=== PATIENT | male | born 1965 | race Caucasian/White ===

== ENCOUNTER 2019-11-11 10:55 | Emergency (ER) | payer OTHER ==
[~2019-11-11] VITALS: Ht 177.8 cm; Wt 90.7 kg
--- OUTSIDE RECORDS SUMMARY | 2019-11-11 10:58 | XMS ---
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 Guidelines Source: [employer] [facility] [place] Guidelines Date: 10/19/2019 Care Coordination: Member is currently enrolled in Mental Health Services through [employer]. If services are needed through [employer] please call: Quique [phone] Mahendra/Luis Alberto Stubbs\\[facility]; [phone] Crisis [phone] E.D. VISIT COUNT (12 MO.) 1 [facility] TOTAL 1 NOTE: Visits indicate total known visits. ED/UCC VISIT TRACKING (12 MO.) 11/11/2019 10:55 [facility] [place] TYPE: Emergency COMPLAINT: - MEDICAL CLEARANCE INPATIENT VISIT TRACKING (12 MO.) No inpatient visits to display in this time frame [email or web address]
[2019-11-11] MEDS ORDERED: LAMICTAL200 MG PO (11:51)
[2019-11-11] MEDS ORDERED: VALIUM10 MG PO (11:52)
[2019-11-11] MEDS ORDERED: MULTI VITAMIN1 EACH PO (11:53)
[2019-11-11] MEDS ORDERED: LITHIUM CARBON450 MG PO (11:54)
== END 2019-11-11 17:16 | disposition short-term general hospital (02) ==
LOC: ED 10:55
DX: F32.9 Major depressive disorder, single episode, unspecified (principal); Z88.0 Allergy status to penicillin; Z79.899 Other long term (current) drug therapy
CPT/HCPCS: 80053; 80176; 80178; 81001; 84443; 85025; 99285; G0480

== ENCOUNTER 2020-05-31 14:15 | Emergency (ER) | payer OTHER ==
[~2020-05-31] VITALS: Ht 177.8 cm; Wt 81.6 kg
[~2020-05-31 14:15] MED LIST: CEROVITE ADVAN1 EACH PO; IMITREX20 MG NAS; LAMICTAL200 MG PO; LITHIUM CARBON450 MG PO; MULTI VITAMIN1 EACH PO; SUMATRIPTAN SU100 MG PO; VALIUM10 MG PO; VENTOLIN HFA18 GM INH; WELLBUTRIN SR150 MG PO
--- OUTSIDE RECORDS SUMMARY | 2020-05-31 14:18 | XMS ---
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 - Has Care Guidelines - PDMP - [facility] - 2 Visits in 30 Days CARE PROVIDERS Mike [facility] Current PHONE: [phone] [facility] 11/12/2019-Current PHONE: [phone] Guidelines Source: [employer] Guidelines Date: 10/19/2019 Care Coordination: Member is currently enrolled in Mental Health Services through [employer]. If services are needed through [employer] please call: Quique [phone] Mahendra/Luis Alberto Chicas\[facility]; [phone] Crisis [phone] E.DNicole VISIT COUNT (12 MO.) [address] [facility] TOTAL 3 NOTE: Visits indicate total known visits. ED/UCC VISIT TRACKING (12 MO.) 05/31/2020 14:15 [facility] [place] TYPE: Emergency COMPLAINT: - MEDICAL CLEARANCE 05/03/2020 17:14 [facility] [place] TYPE: Emergency COMPLAINT: - MEDICAL CLEARANCE DIAGNOSES: - Other psychoactive substance abuse, uncomplicated - Sleep apnea, unspecified - Other microscopic hematuria - Laceration without foreign body of right forearm, initial encounter - Major depressive disorder, single episode, unspecified - Other emt intermediate (current) drug therapy - Post-traumatic stress disorder, unspecified - Contact with and (suspected) exposure to other viral communicable diseases - Allergy status to penicillin - Nicotine dependence, unspecified, uncomplicated - Unspecified cirrhosis of liver - Intentional self-harm by unspecified sharp object, initial encounter 11/11/2019 10:[address] [facility] [place] TYPE: Emergency COMPLAINT: - MEDICAL CLEARANCE DIAGNOSES: - Suicidal ideations - Major depressive disorder, single episode, unspecified - Other emt intermediate (current) drug therapy - Allergy status to penicillin INPATIENT VISIT TRACKING (12 MO.) No inpatient visits to display in this time frame [email or web address]
== END 2020-05-31 16:55 | disposition home or self-care (01) ==
LOC: ED 14:15
DX: Z04.6 Encounter for general psychiatric examination, requested by authority (principal); Z20.828 Contact with and (suspected) exposure to other viral communicable diseases; G47.30 Sleep apnea, unspecified; Z87.891 Personal history of nicotine dependence; Z88.0 Allergy status to penicillin; Z79.899 Other long term (current) drug therapy
CPT/HCPCS: 80053; 80176; 80178; 81001; 84443; 85025; 99283; C9803; G0480; U0003

== ENCOUNTER 2021-09-13 14:23 | Emergency (ER) | payer SELFPAY ==
[~2021-09-13] VITALS: Ht 177.8 cm; Wt 81.7 kg
[2021-09-13] MEDS ORDERED: ONDANSETRON ODT4 MG PO (16:00)
[2021-09-13] MEDS ORDERED: CLEOCIN HCL300 MG PO (16:00)
[2021-09-13] MEDS ORDERED: HYDROCODON-ACE1 EA10 PO (16:00)
== END 2021-09-13 16:13 | disposition home or self-care (01) ==
LOC: ED 14:23
DX: K04.7 Periapical abscess without sinus (principal); Z88.0 Allergy status to penicillin; Z79.899 Other long term (current) drug therapy; G47.30 Sleep apnea, unspecified; Z79.891 Long term (current) use of opiate analgesic
CPT/HCPCS: 99282; A9270

== ENCOUNTER 2022-03-24 16:36 | Emergency (ER) | payer OTHER ==
[~2022-03-24] VITALS: Ht 177.8 cm; Wt 96.9 kg
[~2022-03-24 16:36] MED LIST changes: +CLEOCIN HCL300 MG PO; +HYDROCODON-ACE1 EA10 PO; +ONDANSETRON ODT4 MG PO
[2022-03-24] MEDS ORDERED: PENICILLIN V P500 MG PO (19:05)
== END 2022-03-24 19:47 | disposition home or self-care (01) ==
LOC: ED 16:36
DX: K08.89 Other specified disorders of teeth and supporting structures (principal); Z87.891 Personal history of nicotine dependence
CPT/HCPCS: 99282

== ENCOUNTER 2023-05-01 14:41 | Emergency (ER) | payer OTHER ==
[~2023-05-01] VITALS: Ht 177.8 cm; Wt 106.6 kg
[~2023-05-01 14:41] MED LIST changes: +ACETAMINOPHEN500 M1 PO; +CELEXA10 MG PO; +FLOVENT DISKUS50 MCG INH; +HYDROXYZINE HCL50 MG PO; +IMITREX50 MG PO; +NEURONTIN100 MG PO; +OMEPRAZOLE20 MG PO; +PENICILLIN V P500 MG PO; +PRAZOSIN HCL1 MG PO; +PROPRANOLOL HCL40 MG PO; +SPIRIVA RESPIMAT4 GM INH; +TRIFLUOPERAZINE2 MG PO; +VERAPAMIL ER120 MG PO
--- OUTSIDE RECORDS SUMMARY | 2023-05-01 14:43 | XMS ---
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 ED/UCC VISIT TRACKING (12 MO.) 05/01/2023 14:42 [facility] [place] TYPE: Emergency COMPLAINT: - ABDOMINAL ISSUE INPATIENT VISIT TRACKING (12 MO.) No inpatient visits to display in this time frame [email or web address]
[2023-05-01] MEDS ORDERED: CEPHALEXIN500 M1 PO (15:10)
[2023-05-01 15:27] VITALS: BP 128/83
== END 2023-05-01 15:30 | disposition home or self-care (01) ==
LOC: ED 14:41
DX: T81.49XA Infection following a procedure, other surgical site, initial encounter (principal); Y83.8 Other surgical procedures as the cause of abnormal reaction of the patient, or of later complication, without mention of misadventure at the time of the procedure; F43.10 Post-traumatic stress disorder, unspecified; F60.2 Antisocial personality disorder; Z86.19 Personal history of other infectious and parasitic diseases; Z87.891 Personal history of nicotine dependence; Z79.899 Other long term (current) drug therapy
CPT/HCPCS: 87070; 87075; 87205; 99283; A9270

== ENCOUNTER 2023-12-04 05:11 | Emergency (ER) | payer OTHER ==
[~2023-12-04] VITALS: Ht 177.8 cm; Wt 102.1 kg
[~2023-12-04 05:11] MED LIST changes: +CEPHALEXIN500 M1 PO
--- OUTSIDE RECORDS SUMMARY | 2023-12-04 05:12 | XMS ---
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 PHONE: [phone] Mike West DO [facility] Current PHONE: Unknown Care Guidelines exist for the following facilities: [facility] Rachael VISIT COUNT (12 MO.) 2 [facility] [place] TOTAL 2 NOTE: Visits indicate total known visits. 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
[2023-12-04] MEDS ORDERED: FUROSEMIDE 40 MG/4 ML VIAL IV ONE (05:30)
[2023-12-04 05:31] LABS: BASOPHILS 0.4 % (0-2); EOSINOPHILS 1.7 % (0-6); HEMOGLOBIN 12.6 g/dL (12.0-18.0); LYMPHOCYTES 11.5 % (24-44); MCH 28.1 (27-36); MCHC 33.1 g/dl (30-36); MONOCYTES 8.7 % (0-12); NEUTROPHILS 77.7 % (39-80); PLATELET COUNT 79 K/uL (140-440); RBC 4.47 M/ul (4.3-5.7); RDW 14.9 (10.5-15.0)
[2023-12-04 05:54] LABS: ALBUMIN 3.8 g/dL (3.4-5.0); ALBUMIN/GLOBULIN RATIO 1.23 (1.1-2.4); ANION GAP 14.3 (7-21); BILIRUBIN, TOTAL 1.3 ng/dL (0.2-1.0); BUN/CREATININE RATIO 6.79 (6.0-28.6); CALCIUM 8.4 mg/dL (8.5-10.1); CREATININE, SERUM 1.03 mg/dL (0.70-1.30); POTASSIUM 3.3 mmol/L (3.5-5.1); PROTEIN, TOTAL 6.9 g/dL (6.4-8.2)
[2023-12-04] MEDS ORDERED: LASIX40 MG PO (06:26)
[2023-12-04] MEDS ORDERED: TRELEGY ELLIPT1 EACH INH (06:27)
[2023-12-04] MEDS ORDERED: BUSPIRONE HCL10 MG PO (06:28)
[2023-12-04] MEDS ORDERED: MELATONIN3 MG PO (06:29)
[2023-12-04] MEDS ORDERED: BENZONATATE 100 MG CAP PO ONE (06:45)
[2023-12-04] MEDS ORDERED: BENZONATATE100 MG PO (07:15)
[2023-12-04 07:25] VITALS: BP 115/88
--- NOTE | 2023-12-04 11:49 | EKG ---
[facility] [address] [place] [address] Signed Normal sinus rhythm Normal ECG When compared with ECG of 04-FEB-2023 09:27, No significant change was found Confirmed by Miller Arriola ([id number]) on 12/04/2023 11:48:57 AM Electronically Signed By: MILLER ARRIOLA MD 12/04/23 1149 PATIENT NAME: ALFREDJUNG RAUL Electrocardiogram DATE OF : 65 PHYSICIAN: MILLER ARRIOLA MD REPORT #: [id number] REPORT IS CONFIDENTIAL AND NOT TO BE RELEASED WITHOUT AUTHORIZATION
== END 2023-12-04 07:25 | disposition home or self-care (01) ==
LOC: ED 05:11
PROVIDERS: Family Medicine
DX: G47.30 Sleep apnea, unspecified (principal); I11.0 Hypertensive heart disease with heart failure; I50.9 Heart failure, unspecified; Z87.891 Personal history of nicotine dependence; Z79.899 Other long term (current) drug therapy
CPT/HCPCS: 36415; 71045; 80053; 83880; 84484; 85025; 85379; 93005; 93010; J1940